=== PATIENT | female | born 1975 | race Caucasian/White ===

== ENCOUNTER 2017-02-07 21:23 | Emergency (ER) | payer BC ==
[2017-02-07] MEDS ORDERED: DIAZEPAM 5 MG/ML SYRG ONE (21:41)
[2017-02-07] MEDS: DIAZEPAM 5 MG/ML SYRG IV ONE (21:53)
[2017-02-07] MEDS: DIAZEPAM 5 MG/ML SYRG IM ONE (21:53)
--- NOTE | 2017-02-07 21:57 | ERNOTE ---
Neuro HPI ER Record Date of Service: 02/07/17 Presenting Symptoms: confusion Source: patient, family, EMS notes reviewed, past records Exam Limitations: clinical condition, other - patient 42-year-old female history of Lyme's disease with atypical complications and seizure disorder. Patient recently lost her mother and was [facility]. states she's under significant amount of stress and did drink tonight. This individual has a seizure frequency approximately once every few months had a seizure tonight. She did not strike her head and has no discomfort other than pain localized to her jaw related to clenching her teeth. Patient apparently postictal at time of EMS arrival with mental status now at baseline. Patient given diazepam intranasally 2 prior to arrival. Immunizations: IMMUNIZATION HX Immunizations Up to Date Yes History of Influenza Vaccine Yes Hx Pneumococcal Vaccination No Allergies/Adverse Reactions: Allergies Allergy/AdvReac Type Severity Reaction Status Date / Time No Known Drug Allergies Allergy Verified 07/23/16 18:23 pregabalin [From Lyrica] AdvReac Mild Other Verified 02/07/17 22:25 Home Medications: HOME MEDICATIONS Temazepam [Restoril] 30 mg PO HS 05/07/15 [Last Taken Unknown] Calcium Carbonate/Vitamin D3 [Calcium 600 + D Tablet] 1 each PO DAILY 09/26/15 [ Last Taken Unknown] [place]-3/Dha/Epa/Fish Oil [Fish Oil 500 mg Softgel] 1 each PO DAILY 09/26/15 [ Last Taken Unknown] Amlodipine Besylate [Norvasc] 2.5 mg PO DAILY 02/07/17 [Last Taken Unknown] Aspirin 81 mg PO DAILY 02/07/17 [Last Taken Unknown] Benazepril HCl [Lotensin] 40 mg PO DAILY 02/07/17 [Last Taken Unknown] Brimonidine Tartrate/Timolol [Combigan Eye Drops] 1 drop OP BID 02/07/17 [Last Taken Unknown] Budesonide/Formoterol Fumarate [Symbicort 160-4.5 Mcg Inhaler] 2 puff IH BID [Last Taken Unknown] Cevimeline HCl [Evoxac] 30 mg PO BID 02/07/17 [Last Taken Unknown] Fluocinonide [Lidex 0.05%] 1 appl TP BID 02/07/17 [Last Taken Unknown] Fluticasone Propionate [Flonase] 1 spray NS DAILY 02/07/17 [Last Taken Unknown] Furosemide [Lasix] 20 mg PO DAILY 02/07/17 [Last Taken Unknown] Gabapentin [Neurontin] 300 mg PO HS 02/07/17 [Last Taken Unknown] Hydroxypropyl Cellulose [Lacrisert] 5 mg OP DAILY 02/07/17 [Last Taken Unknown] Loteprednol Etabonate [Lotemax] 1 drop OP QID 02/07/17 [Last Taken Unknown] Mecobal/Levomefolat Ca/B6 Phos [Foltanx Tablet] 1 each PO DAILY 02/07/17 [Last Taken Unknown] Meloxicam 7.5 mg PO DAILY 02/07/17 [Last Taken Unknown] Montelukast Sodium 10 mg PO DAILY 02/07/17 [Last Taken Unknown] Mupirocin 1 appl TP TID 02/07/17 [Last Taken Unknown] Nebivolol HCl [Bystolic] 2.5 mg PO DAILY 02/07/17 [Last Taken Unknown] Pilocarpine HCl 5 mg PO TID 02/07/17 [Last Taken Unknown] Psyllium Husk (with Sugar) [Metamucil] 1 each PO DAILY 02/07/17 [Last Taken Unknown] - History of Present Illness Date (Duration): 02/07/17 Time (Timing): 21:30 Onset: sudden onset Severity: mild Context: other - Character of Deficits New weakness: Present: general (diffuse) Altered sensation: Present: other - patient was generalized seizure disorder. Initially patient nonresponsive verbally. Thereafter post ictal pressure. Time now back to baseline. Additional Deficits: Present: impaired speech Baseline Cognition: Present: alert, oriented x 4 Baseline Gait: Present: walks w/o assistance Associated Symptoms: Reports: seizure Prior Treament: Reports: similar symptoms before Review of Systems - Review of Systems Constitutional: Present: other - loss of consciousness temporally associated with seizure disorder. Patient still having seizures that, EMS arrival. Above resolved with intranasal Valium. EYE: Present: no symptoms reported ENT: Present: no symptoms reported Respiratory: Present: no symptoms reported Cardiology: Present: no symptoms reported Gastrointestinal/Abdominal: Present: no symptoms reported Genitourinary: Present: no symptoms reported Musculoskeletal: Present: muscle pain - bilateral jaw pain related to clenching muscles. This is typical for this patient's seizures. Skin: Present: no symptoms reported Neurological: Present: See HPI, seizure Endocrine: Present: no symptoms reported Hematologic/Lymphatic: Present: no symptoms reported Psych: Present: anxiety - Patient's Past Medical History Patient History - Medical: ADHD, GERD, Glaucoma, Seizures, Other - patient with history of Lyme's disease with atypical residuals. Patient History - Cardiac/Respiratory: Hypertension, Other - history of neuropathy unknown etiology possibly Lyme's dis Patient History - Cancer: No Hx of Cancer Patient History - Surgical Procedures: Colonoscopy, D & C, T & A, Other Patient History - Other: None - Family History Father Family History - Medical: Diabetes Type 2 Family History - Cardiac/Respiratory: No pertinent hx Brother Family History - Cardiac/Respiratory: No pertinent hx Mother Family History - Cardiac/Respiratory: Hypertension - Social History Living Situations: spouse Abuse History: No History of abuse Psych History: No pertinent hx Alcohol Use: occasionally Drug Use: other - Immunizations Immunizations Up to Date: Yes Hx Pneumococcal Vaccination: No History of Influenza Vaccine: Yes Physical Exam - Physical Exam General Appearance: Present: wd/wn, alert, mild distress, anxious, other - patient anxious. Patient was unusually dry throat which is typical for her post seizure per family. Eye Exam: Normal inspection: bilateral - normal, PERRL: bilateral - normal, EOMI : bilateral - normal Ears, Nose, Throat: Present: normal ENT inspection, normal pharynx, other - no sign of free fluid ears or nose. Good general dentition without injury to teeth or tongue. No palpable defect or step-off noted on scalp or facial structures. Neck: Present: normal inspection, nontender Respiratory: Present: no respiratory distress, normal breath sounds, no accessory muscle use, chest nontender, lungs clear Cardiovascular/Chest: Present: regular rate, rhythm, no murmur, normal peripheral pulses Peripheral Pulses: N=norm/S=strong/W=weak/B=bound/A=absent: Carotid (R): Normal , Carotid (L): Normal, Radial (R): Normal, Radial (L): Normal Gastrointestinal/Abdominal: Present: normal bowel sounds, nontender, nondistended, soft, no organomegaly Rectal Exam: Present: deferred Back Exam: Present: normal inspection, normal range of motion, no CVA tenderness , no vertebral tenderness Extremity Exam: Present: normal inspection, normal range of motion Neurological Exam: Present: alert, oriented, normal mood/affect, no motor/ sensory deficits, 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 No neurologic exam as noted above essentially normal. DTR: N=norm/NB=norm/brisk/A=abs/DD=dull/dimin/HC=hyperactive: Bicep (R): Normal , Bicep (L): Normal, Tricep (R): Normal, Tricep (L): Normal, Knee (R): Normal, Knee (L): Normal Skin Exam: Present: normal color, warm/dry Lymphatic Exam: Present: no adenopathy Pelvic Exam: Present: deferred Amalia Coma Scale - Assess Eye Opening: Spontaneous Motor: Obeys Commands Verbal: Oriented - Total Coma Scale Total: 15 Departure Clinical Impression: Seizure, Hypokalemia - Departure Condition: Good Additional Instructions: Please discuss with primary provider recurrence of his seizure and low potassium. For now recommend taking 1-2 bananas daily. Consideration for changing to different antihypertensive medication other than furosemide-Lasix. Ambulatory Orders: CBC Location: Determined By Patient
[2017-02-07 22:18] LABS: Hematocrit 41.3 % (37.0-47.0); Mean Cell Volume 87.7 fl (78-100); Mean Corpuscular Hemoglobin 29.7 pg (27-31); Mean Corpuscular Hgb Conc 33.9 g/dl (32-36); Neutrophil # 5.6 K/mm3 (1.3-6.0); Neutrophil % 68.7 % (42-75.0); Platelet Count 306 K/mm3 (150-450); Red Blood Count 4.71 M/mm3 (4.2-5.4); Red Cell Distribution Width 12.8 % (11.5-14.0); White Blood Count 8.2 K/mm3 (4.0-10.5)
[2017-02-07 22:29] VITALS: BP 134/89
[2017-02-07] MEDS ORDERED: IBUPROFEN 400 MG TABLET ONE (22:43)
[2017-02-07 22:44] LABS: Albumin * 4.3 gm/dl (3.4-5.0); Anion Gap 18.9 mmol/L (6.8-13.8); BUN/Creatinine Ratio 7.1 (9.0-21.6); Bilirubin, Total 0.2 mg/dL (0.0-1.1); Ca. Corrected For Albumin 8.9 mg/dL (8.4-10.2); Calcium * 9.5 mg/dL (7.9-10.9); Carbon Dioxide 22.4 mmol/L (24-32.6); Potassium 3.3 mmol/L (3.4-4.6); Total Protein 7.3 gm/dL (6.2-8.2)
[2017-02-07] MEDS: IBUPROFEN 400 MG TABLET PO ONE (22:46)
[2017-02-07] MEDS ORDERED: POTASSIUM CHLORIDE 20 MEQ TABLET.SA PO ONE (22:49)
[2017-02-07] MEDS ORDERED: POTASSIUM CHLORIDE 20 MEQ TABLET.SA ONE (22:51)
[2017-02-07] MEDS ORDERED: POTASSIUM BICARBONATE/CIT AC 25 MEQ TABLET.EFF ONE (22:53)
[2017-02-07] MEDS: POTASSIUM BICARBONATE/CIT AC 25 MEQ TABLET.EFF PO ONE (22:57)
--- OUTSIDE RECORDS SUMMARY | 2017-02-07 23:28 | XMS REPORT | Continuity of Care Document ---
:1975 Author Organization [facility] ([facility]) Address [address] [place] [address] Phone [phone] Care Team Providers Name Role Phone Deisy Galicia Primary Care Provider [phone] Source Comments This disclosure is being made pursuant to the Care Everywhere program, applicable federal and state laws, and may not contain all informaitonavailable regarding this patient.[facility] ([facility]) Active Allergies and Adverse Reactions No Known Allergies Current Medications Prescription Sig. Disp. Refills Start End Date Status Date TEMAZEPAM 30 mg capsule Take 30 mg by 0 Active mouth at 5 bedtime as needed multivitamin tablet Take 1 tablet Active by mouth daily calcium carbonate (600 mg Take 2 tablets Active Ca) 1500 mg -vitamin D 200 by mouth daily unit per tablet biotin PO Active polyethylene glycol 3350 Take 17 g by Active (MIRALAX) 17 gram/dose mouth daily powder benazepril 40 mg tablet Take 1 tablet 30 tablet Active (40 mg total) 5 by mouth daily psyllium (METAMUCIL SF) Take 3.4 g by Active powder mouth daily Dilute in at least 8 ounces of water. probiotic 20 billion cell Take 1 capsule Active capsule by mouth daily COMBIGAN 0.2-0.5 % 0 Active ophthalmic solution 6 LOTEMAX 0.5 % ophthalmic 0 Active suspension 6 furosemide 20 mg tablet Take 1 tablet 30 tablet Active (20 mg total) 6 by mouth daily. VYVANSE 30 mg capsule Active 6 primrose oil 1,000 mg Take 1,000 mg Active capsule by mouth once. HYDROXYPROPYL CELLULOSE 0 Active (LACRISERT OPHTH) 6 FOLTANX 3-35-2 mg per Take 1 tablet 4 Active tablet by mouth 2 6 times daily. OTHER 400 Int'l Active Units. ISOMER E OTHER 1,000 mg 2 Active times daily. Wholemega BYSTOLIC 5 mg tab tablet Active 6 aspirin 81 mg EC tablet Take 81 mg by Active mouth daily. fluticasone 50 Use 2 sprays in 16 g 6 Active mcg/Actuation nasal spray each nostril 6 daily. fluocinoNIDE 0.05 % topical Active cream 6 mupirocin 2 % ointment Active 6 budesonide-formoterol Use 2 Puffs by Active (SYMBICORT) 160-4.5 inhalation 2 mcg/Actuation inhaler times daily. hydroxychloroquine 200 mg Take 2 tablets 60 tablet 11 Active tablet (400 mg total) 6 by mouth daily. montelukast 10 mg tablet Active 6 pregabalin (LYRICA) 50 mg Take 2 cap AM 150 capsule 5 Active capsule and 3 cap PM. 6 cevimeline (EVOXAC) 30 mg Take 1 capsule 60 capsule 5 Active capsule (30 mg total) 6 by mouth 2 times daily. meloxicam 7.5 mg tablet Take 1 tablet 30 tablet 11 Active (7.5 mg total) 6 by mouth daily. omega-3 fatty acids 1 gram Take 2 g by Active capsule mouth daily. vitamin E 400 unit capsule Take 400 Units Active by mouth daily. CARBOXYMETHYLCELLULOSE Active SODIUM (REFRESH OPH) pilocarpine 5 mg tablet Take 1 tablet 90 tablet 11 Active (5 mg total) by 7 mouth 3 times daily. 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 Historic score 03/22. Son with hypermobility evaluated at [place]. Chest pain 09/11/2015 Overview: -Evaluated by cardiology 06/13/2015. No concern for cardiac chest pain. Concern for excessive energy drink intake and inadequate sleep. Other laboratory examination 09/11/2015 Overview: -PTH, Ca normal 05/31/2015 -Estradiol 51 (follicular 19-144, mid-cycle 64-357, luteal 56, post- menopausal <31) (06/25/2015) -FSH - 13 (follicular 2.5-10.2), mid-cycle peak 3.1-17.7, luteal 1.5-9.1, postmenopausal 23-116.3) (06/25/2015) -TTG normal 07/11/2015 -Vitamin D normal 07/11/2015 -Vitamin B12 normal 07/16/2015 -Serum DILSHAD: No monoclonal proteins 06/07/2015 Multiple thyroid nodules 08/28/2015 Overview: Thyroid US 05/30/15: -Thyromegaly: Right lobe 6.1 cm, left lobe 5.4 cm -Right mixed complex nodule inferior pole 1.4 cm -Left solid nodule inferior pole with no shadowing echogenic foci to suggest calcification Biopsies of nodules in 06/2015: All benign Mild concentric left ventricular hypertrophy (LVH) 08/28/2015 Overview: Echo 05/23/15: Mild concentric LVH. EF 62%. Normal LV wall motion. Trace MR. Carotid atherosclerosis 08/28/2015 Overview: Carotid duplex 05/23/15: Atherosclerotic disease without hemodynamically significant stenosis. No % stenosis given. Smoker 08/28/2015 Leg paresthesia 08/28/2015 Overview: -Lumbar x-ray 06/11/15: Mild disc narrowing at L4-L5, L5-S1 facet joint degenerative disease -Lumbar MRI without contrast 06/11/15: Broad-based mild L4-L5 disc bulge. Mild bilateral neural foraminal compromise noted by disc osteophyte complex. Mild fact joint degenerative change. T12-L4 normal. Carpal tunnel syndrome 08/28/2015 Overview: -EMG shows mild peripheral neuropathy -Seen by ortho - recommended wrist splint Fatigue 08/28/2015 Overview: -Cortisol and TTG normal Lyme disease 08/03/2015 Overview: Treated for 3-4 weeks with antibiotics in 05/2015. Labs reviewed by Dr. Moran. Possible acute infection in 05/2015, but symptoms started in . Dry eyes 08/03/2015 Overview: -SSA, SSB, TO negative 04/19/2015 -ESR, CRP normal 08/20/2015 -Following with outside patient financial representative. Had lower lid puncta cauterized by [facility]. Essential hypertension 08/03/2015 Overview: -Renal US with doppler 05/23/2015: Mild increase in left peak systolic velocity suggesting mild stenosis, may not be significant -Labs reviewed going back to 2012, no proteinuria or elevated creatinine -Metanephrines mildly elevated but repeat normal 06/2015 -Cortisol normal , 07/13/2015 History of seizure 08/03/2015 Overview: Per neurology, more likely vasovagal syncope. EEG 05/23/2015 awake, drowsy, with hyperventilation, with photic stimulation - no abnormal activity. Overread by neurologist at [facility] - poor quality but likely normal. -Head CT without (05/22/15) and brain MRI with/without (05/23/15) normal. MRI/MRA brain also normal 11/14/2010. 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 TSH normal but positive anti-TPO. Will need to follow thyroid function closely. 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/2015 Resolved Problems Problem Noted Date Resolved Date Carpal tunnel syndrome of right wrist 06/22/2015 08/03/2015 Most Recent Encounters Date Type Specialty Providers Description 11/24/2016 Office Visit Diabetes Services Malini Bojorquez, Chief Comp: Patient MD Reported Reason For Visit 11/24/2016 Office Visit Dermatology Ciliberto, Subj: Appointment MD [place] canceled 11/18/2016 Office Visit Diabetes Services Malini Bojorquez, Dx: Emir PATRICK disease (Primary Dx) 11/18/2016 Office Visit Pathology Malini Bojorquez, Dx: Emir PATRICK disease Lab Services, Irl 11/18/2016 Hospital Encounter Radiology u-Mendel Cantu Dx: Multiple thyroid MD Camacho nodules 11/18/2016 Telephone Med Rheumatology Chip Arevalo MD Chief Comp: Other 11/11/2016 Office Visit Pathology Chip Arevalo MD Chief Comp: Patient Lab Services, Pfp Reported Reason For Visit 11/11/2016 Office Visit Med Rheumatology Chip Arevalo MD Dx: Sjogren's Chandra, Ermei, PA-C syndrome (Primary Dx) Immunizations Name Dates Previously Given Next Due Influenza, unspecified 06/27/2015 Social History Tobacco Use Types Packs/Day Years Used Date Light Tobacco Smoker Cigarettes 0.5 20 Smokeless Tobacco: Never Used Tobacco Cessation:Ready to Quit: Yes; Counseling Given: Yes Comments: Alcohol Use Drinks/Week oz/Week Comments Yes 4 Glasses of wine Rare Last Filed Vital Signs Vital Sign Reading Time Taken Blood Pressure 121/80 11/18/2016 11:49 AM [employer]SEL[employer] Pulse 74 11/18/2016 11:49 AM [employer] Temperature 36.2 C (97.2 F) 11/11/2016 2:18 PM [employer] Respiratory Rate 16 05/23/2016 10:57 AM CDT Height 1.715 m (5' 7.52") 04/22/2016 10:12 AM CDT Weight 64.1 kg (141 lb 5 oz) 11/18/2016 11:49 AM [employer] Body Mass Index 21.79 11/18/2016 11:49 AM [employer] Oxygen Saturation 100% 05/23/2016 10:57 AM CDT Plan of Care Date Type Specialty Providers Description 05/26/2017 Appointment Radiology Subj: Appointment Scheduled 05/26/2017 Appointment Diabetes Services Malini Bojorquez MD Subj: Appointment [address] [place] [place] [address] [phone] (Fax) 06/11/2017 Appointment Med Rheumatology Chip Arevalo MD Subj: Appointment [address] [place] [address] [phone] (Fax) Health Maintenance Due Date Last Done Comments Hepatitis B Vaccine (1 of 3 - Primary Series) 1975 Tdap Vaccine 02/02/1984 Lipid Disorder Screening 1991 MMR Vaccine 1991 Td Vaccine 1991 Pneumococcal Vaccine (1 of 1 - PPSV23) 02/02/1992 Cervical Cancer Screening 2003 Mammogram 2013 Influenza Vaccine: Seasonal (Season Ended) 2017 06/27/2015 Results from Last 3 Months US NECK/THYROID (11/18/2016 11:03 AM) Impressions Impression: 1. Stable bilateral thyroid nodules, prior FNA benign. --- Final --- Narrative [facility] Department of Radiology Ultrasound Division 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 Technique: Grayscale Thyroid ultrasound. Comparison: 12/25/2015. Findings: Thyroid: Multiple small nodules visualized bilateral. + +-------+ + +-------+ :Right Lobe:Size :Measurement (L x W x AP):Parenchyma :Flow : + +-------+ + +-------+ ::Normal.:5.2 x 1.8 x 1.1 cm. :Homogenous.:Normal.: + +-------+ + +-------+ +--------+ + + + -+ ::R Nodule:Nodule size :Characteristics :FNA amenable : ::location:(cm): : : +--------+ + + + -+ :Nodule 1:inferior:1.7 x 1.1 x :mixed solid & cystic:Prior FNA benign: :::1.1 :: : +--------+ + + + -+ +---------+-------+ + +-------+ :Left Lobe:Size :Measurement (L x W x AP):Parenchyma :Flow : +---------+-------+ + +-------+ : :Normal.:5.1 x 1.8 x 1.3 cm. :Homogenous.:Normal.: +---------+-------+ + +-------+ +--------+ + + + -+ ::L Nodule :Nodule size:Characteristics :FNA amenable : ::location :(cm) :: : +--------+ + + + -+ :Nodule 1:superior :0.9 x 0.9 x:mixed solid & cystic:Prior FNA benign: :: :0.6:: : +--------+ + + + -+ :Nodule 2:inferior :1.3 x 1.2 x:mixed solid & cystic:Prior FNA benign: :: :1.1:and eggshell: : :: : :calcifications: : +--------+ + + + -+ +-------+ + + :Isthmus:Isthmus Thickness (cm):AP thickness is 0.3: +-------+ + + Procedure Note [place], Incoming Imaging Results - e Nov 18, 2016 3:57 PM [employer] [facility] Department of Radiology Ultrasound Division [address] [place] [address] ULTRASOUND REPORT NAME: MYRIAM CORDOVA Date of Service: 11/18/2016 MRN NO.: [id number] Review Date: 11/18/2016 Patient's : 1975 Resident/Tech: [email or web address] Brian Rosenberg Patient's Age: 41 years Referring MD: MALINI BOJORQUEZ Indication: compare with old US /thyroid nodulesMultiple thyroid nodules [E04.2] 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 Technique: Grayscale Thyroid ultrasound. Comparison: 12/25/2015. Findings: Thyroid: Multiple small nodules visualized bilateral. + +-------+ + +-------+ :Right Lobe:Size :Measurement (L x W x AP):Parenchyma :Flow : + +-------+ + +-------+ : :Normal.:5.2 x 1.8 x 1.1 cm. :Homogenous.:Normal.: + +-------+ + +-------+ +--------+ + + + -+ : :R Nodule :Nodule size :Characteristics :FNAamenable : : :location :(cm) : : : +--------+ + + + -+ :Nodule 1:inferior :1.7 x 1.1 x :mixed solid & cystic:Prior FNA benign: : : :1.1 : : : +--------+ + + + -+ +---------+-------+ + +-------+ :Left Lobe:Size :Measurement (L x W x AP):Parenchyma :Flow : +---------+-------+ + +-------+ : :Normal.:5.1 x 1.8 x 1.3 cm. :Homogenous.:Normal.: +---------+-------+ + +-------+ +--------+ + + + -+ : :L Nodule :Nodule size :Characteristics :FNAamenable : : :location :(cm) : : : +--------+ + + + -+ :Nodule 1:superior :0.9 x 0.9 x :mixed solid & cystic :Prior FNA benign: : : :0.6 : : : +--------+ + + + -+ :Nodule 2:inferior :1.3 x 1.2 x :mixed solid & cystic :Prior FNA benign: : : :1.1 :and eggshell : : : : : :calcifications : : +--------+ + + + -+ +-------+ + + :Isthmus:Isthmus Thickness (cm):AP thickness is 0.3: +-------+ + + IMPRESSION Impression: 1. Stable bilateral thyroid nodules, prior FNA benign. --- Final --- THYROXINE - FREE (11/18/2016 10:59 AM) Component Value Range Free T4 (Thyroxine) 1.25 0.80-1.80 ng/dL Specimen Blood THYROID PEROXIDASE ANTIBODY (11/18/2016 10:59 AM) Component Value Range Anti-TPO Abs (Thyroid Peroxidase) 26.3(H) <=9.0 IU/mL Specimen Blood THYROID STIMULATING HORMONE (11/18/2016 10:59 AM) Component Value Range TSH 0.97 0.27-4.20 IU/mL Specimen Blood DIFFERENTIAL (11/11/2016 3:30 PM) Component Value Range % Neutrophils-Auto Diff 71.7 % Neutrophils-Auto Diff 8420(H) 8644-3398 /MM3 % Lymphocytes-Auto Diff 20.8 % Lymphocytes-Auto Diff 2450 875-3300 /MM3 % Monocytes-Auto Diff 5.5 % Monocytes-Auto Diff 650 130-860 /MM3 % Eosinophils-Auto Diff 0.9 % Eosinophils-Auto Diff 110 40-390 /MM3 % Basophils 0.7 % Basophils-Auto Diff 80 10-136 /MM3 % Immature Granulocytes-Auto Diff 0.4 % Immature Granulocytes-Auto Diff 50 /MM3 Specimen Whole Blood CBC (COMPLETE BLOOD COUNT) (11/11/2016 3:30 PM) Component Value Range WBC Count 11.8(H) 3.7-10.5 K/MM3 RBC Count 4.55 4.00-5.20 M/MM3 Hemoglobin 13.6 11.9-15.5 g/dL Hematocrit 40 35-47 % MCV (Mean Corpuscular Volume) 87 82-99 FL MCH (Mean Corpuscular Hemoglobin) 30 25-35 PG MCHC (Mean Corpuscular Hemoglobin Concentration) 34 32-36 % Platelet Count 346 150-400 K/MM3 MPV (Mean Platelet Volume) 8.6(L) 9.4-12.3 FL RBC Dist Width-STD 41.3 36.4-46.3 FL RBC Distrib Width 13.1 9.0-14.5 % Nucleated RBC 0 /100 WBC Specimen Whole Blood URINE MICROSCOPIC (11/11/2016 3:30 PM) Component Value Range White Blood Cells, Urine <1 0-5 /HPF Red Blood Cells, Urine 1 0-2 /HPF Specimen Urine URINALYSIS (11/11/2016 3:30 PM) Component Value Range Color, Urine None Straw, Pale Yellow, Yellow, Clear, None Clarity, Urine Clear Clear pH, Urine 7.0 <9.0 Glucose, Urine Negative Negative Blood, Urine Negative Negative Ketones, Urine Negative Negative Protein, Urine Negative Negative Urobilinogen, Urine Normal Normal Bilirubin, Urine Negative Negative Leukocyte Esterase, Urine Negative Negative Nitrite, Urine Negative Negative Spec Stuart, Urine <1.005 1.000-1.030 Specimen Urine CREATININE (11/11/2016 3:30 PM) Component Value Range Creatinine 0.8Comment: 0.5-1.0 mg/dL Creatinine switched to enzymatic method on 01/21/2011.GFR equation switched to IDMS-traceable MDRD equation on 01/21/2011. Calculated GFR values are not valid in clinical settings where serum creatinine is changing. Calculated GFR 78 >60 mL/min/1.73 m2 Specimen Blood CBC WITH DIFFERENTIAL (11/11/2016 3:30 PM) Specimen Whole Blood Narrative The following orders were created for panel order CBC WITH DIFFERENTIAL. Procedure Abnormality Status --------- ------ CBC (COMPLETE BLOOD COUNT)[[id number]] AbnormalFinal result DIFFERENTIAL[[id number]] AbnormalFinal result Please view results for these tests on the individual orders. ERYTHROCYTE SEDIMENTATION RATE (11/11/2016 3:30 PM) Component Value Range ESR (Erythrocyte Sedimentation Rate) 7 0-20 mm/Hr Specimen Whole Blood C-REACTIVE PROTEIN (11/11/2016 3:30 PM) Component Value Range CRP (C-Reactive Protein) <0.5 <=0.5 mg/dL Specimen Blood
== END 2017-02-07 23:18 | disposition home or self-care (01) ==
LOC: ER 21:23
DX: R56.9 Unspecified convulsions (principal); E87.6 Hypokalemia; A69.20 Lyme disease, unspecified; I10 Essential (primary) hypertension